=== PATIENT | male | born 2000 | race Caucasian/White ===

== ENCOUNTER 2018-09-23 09:46 | Observation (INO) ==
[2018-09-23] MEDS ORDERED: SODIUM CHLORIDE 0.9% 1000ML 1,000 ML IV SCH (10:15)
[2018-09-23 10:30] LABS: Basophils # (auto) 0.01 K/uL (0-0.2); Basophils % (auto) 0.1 %; Eosinophils # (auto) 0.03 K/uL (0-0.5); Eosinophils % (auto) 0.3 %; Hematocrit (blood only) 42.4 % (42-52); Hemoglobin 15.4 g/dL (14.0-18.0); Immature Granulocytes # (auto) 0.02 K/uL (0.00-0.02); Immature Granulocytes % (auto) 0.2 %; Lymphocytes # (auto) 1.67 K/uL (1.2-3.4); Lymphocytes % (auto) 15.4 %; Mean Corpuscular Hgb Conc 36.3 g/dL (32-36); Mean Corpuscular Volume 87.2 fL (80-100); Mean Platelet Volume 9.8 fL (7.4-10.4); Monocytes % (auto) 3.7 %; Neutrophils % (auto) 80.3 %; Platelet Count 160 K/uL (130-400); RDW Standard Deviation 38.2 fL (36.4-46.3); Red Blood Count 4.86 M/uL (4.7-6.1); White Blood Count 10.83 K/uL (4.8-10.8)
--- NOTE | 2018-09-23 10:41 | Emergency Department Note ---
History of Present Illness General Chief complaint: Abdominal Pain Stated complaint: RLQ Abd pain Time Seen by Provider: 09/23/18 09:55 History of Present Illness Maximum Pain Intensity: 3 Patient is an otherwise healthy 18-year-old male who was referred to the emergency department from [facility] for evaluation of right lower quadrant abdominal pain that started yesterday. Patient reports that he woke yesterday and was feeling well and was in his usual state of health. He exercised, and then golfed with friends. He states that yesterday evening around 1930 he had dinner at [employer]. A couple of hours later, he developed a diffuse lower abdominal cramping. He thought that it was related to the food. As the evening progressed, the pain steadily worsened, and localized more to the right lower quadrant. He states that he had difficulty finding a comfortable position last evening. He intermittent nausea and lightheadedness, but denies any vomiting or diarrhea. He had a normal bowel movement overnight some time, no diarrhea, melena or hematochezia. He has not had any urinary symptoms. He did not try taking any medications for his symptoms. He went to [facility] at 0830 he was referred to the emergency department for evaluation of right lower quadrant pain and possible appendicitis. He rates his discomfort a 3/10. Home Medications Home Medications Medication Instructions Recorded Confirmed Type dextroamphetamine-amphetamine 20 mg PO DAILY 09/23/18 09/23/18 History [Adderall XR] dextroamphetamine-amphetamine 10 mg PO UD 09/23/18 09/23/18 History [Adderall] methylphenidate HCl [Concerta] 36 mg PO DAILY 09/23/18 09/23/18 History Allergies Allergy/AdvReac Type Severity Reaction Status Date / Time No Known Allergies Allergy Verified 09/23/18 10:47 Past Med/Surg History Medical History ADHD (Chronic) Surgical History History of excision of pilonidal cyst (Resolved) Social History Preferred Language: Japanese Current Living Situation Comment: roommates in a house current occupational status: student Feels Safe at Home: Yes Smoking Status: Never smoker Hx Alcohol Use: Yes Hx Substance Use: No Review of Systems A total of 10 systems reviewed and were otherwise negative Physical Exam Vital Signs Vital Signs - 24 hr 09/23/18 09:50 09/23/18 11:32 09/23/18 13:00 Temperature 36.6 C Temperature Source Oral Sepsis Recent Fever Within 48 Hours No Sepsis New/Unexplained Change in Mental Status No Sepsis Action Taken by Nursing No Action Required Pulse Rate 67 Pulse Rate [Apical] 54 L Pulse Rhythm [Apical] Pulse Strength [Apical] Respiratory Rate 15 16 16 Respiratory Effort / Characteristics Non-Labored Non-Labored Respiratory Depth Normal Normal Blood Pressure 97/66 L Blood Pressure [Left Arm] 110/52 L Blood Pressure Mean 76 Blood Pressure Mean [Left Arm] 71 Blood Pressure Position Sitting Blood Pressure Position [Left Arm] Pulse Oximetry 100 99 Oxygen Delivery Method Room Air Room Air Room Air 09/23/18 15:04 Temperature Temperature Source Sepsis Recent Fever Within 48 Hours Sepsis New/Unexplained Change in Mental Status Sepsis Action Taken by Nursing Pulse Rate Pulse Rate [Apical] 53 L Pulse Rhythm [Apical] Regular Pulse Strength [Apical] Normal Respiratory Rate 16 Respiratory Effort / Characteristics Non-Labored Spontaneous Respiratory Depth Normal Blood Pressure Blood Pressure [Left Arm] 112/55 L Blood Pressure Mean Blood Pressure Mean [Left Arm] 74 Blood Pressure Position Blood Pressure Position [Left Arm] Sitting Pulse Oximetry 100 Oxygen Delivery Method Room Air CONSTITUTIONAL: Patient is a well-appearing 18-year-old male who is awake and alert and in no acute distress. EYES: Pupils equal, round, reactive to light and accommodation. EOMs intact without nystagmus. Sclera are anicteric. ENT: Tympanic membranes intact, with normal landmarks. External canals are clear. Oral and nasopharynx are clear. Mucous membranes are moist, no lesions, tongue and gums appear normal. CARDIOVASCULAR: Regular rate and rhythm. Peripheral pulses easily palpable. RESPIRATORY: Breath sounds equal and clear to auscultation without wheezes, rales, or rhonchi heard. Full and equal chest expansion without accessory muscle use or retractions. ABDOMEN: Bowel sounds are present. Abdomen is soft, scaphoid, tender to percussion and palpation in the right lower quadrant, with voluntary guarding. No rigidity. INTEGUMENTARY: No lesions or rash, normal skin turgor. LYMPH: No lymphadenopathy. Course The patient was seen and assessed as above. Old records were reviewed. He presents the emergency department for roughly 12 hours of right lower quadrant abdominal pain with associated nausea. He has not had anything to eat or drink this morning. IV lock was initiated. He was made n.p.o. He was hydrated with normal saline solution. CBC with differential, BMP and urine dip were collected. Laboratory studies noted a white count of 10,800, No left shift or bandemia. No anemia. No significant electrolyte imbalance noted. BUN and creatinine 22 and 1.17. Urine dip was clear. Appendiceal ultrasound was obtained. The appendix was visualized and was measured at roughly 5 mm with no secondary signs of infection. CT scan was advised. CT scan with IV and oral contrast noted the appendix to be thickened and measuring 11 mm in diameter. There is no evidence for perforation or abscess. Findings were concerning for acute appendicitis. All laboratory and diagnostic imaging studies were reviewed with the patient. Attending physician was also made aware of the patient and his diagnosis. General surgery consult was placed. Patient was seen by Dr. Russo, who will take him to the OR for surgical intervention. Please refer to surgical H&P for further information. Administered Medications Sodium Chloride (Nss 1000ml) 1,000 mls @ 250 mls/hr IV .Q4H ANDREW Stop: 10/23/18 10:14 Last Admin: 09/23/18 11:55 Dose: 250 mls/hr Documented by: [id number] Ioversol (Optiray 320 100ml) 94 ml IV ONCE PRN PRN Reason: Interaction Checking Stop: 09/27/18 12:44 Last Admin: 09/23/18 12:45 Dose: 94 ml Documented by: [id number] Discontinued Medications Sodium Chloride (Nss 1000ml) 1,000 mls @ 999 mls/hr IV .Q1H1M ANDREW Stop: 09/23/18 11:15 Last Infusion: 09/23/18 11:53 Dose: 0 mls/hr Documented by: [id number] Admin: 09/23/18 10:38 Dose: 999 mls/hr Documented by: [id number] Medical Decision Making Differential Diagnosis Differential diagnoses entertained included UTI, pyelonephritis, renal colic, appendicitis, mesenteric adenitis, hernia, shingles, musculoskeletal injury, among others. Medical Records Attestation: I reviewed the patient's medical records. Home Medications Current Medication List: was personally reviewed by me Laboratory Data Attestation: I reviewed the patient's lab results. Result diagrams: 09/23/18 10:15 09/23/18 10:19 Lab Results 09/23/18 09/23/18 Range/Units 10:15 10:19 WBC 10.83 H (4.8-10.8) K/uL RBC 4.86 (4.7-6.1) M/uL Hgb 15.4 (14.0-18.0) g/dL Hct 42.4 (42-52) % MCV 87.2 (80-100) fL MCH 31.7 (25-34) pg MCHC 36.3 H (32-36) g/dL RDW Std Deviation 38.2 (36.4-46.3) fL RDW Coeff of Onofre 12.0 (11.5-14.5) % Plt Count 160 (130-400) K/uL MPV 9.8 (7.4-10.4) fL Immature Gran % (Auto) 0.2 % Neut % (Auto) 80.3 % Lymph % (Auto) 15.4 % Nolan % (Auto) 3.7 % Eos % (Auto) 0.3 % Baso % (Auto) 0.1 % Immature Gran # (Auto) 0.02 (0.00-0.02) K/uL Neut # (Auto) 8.70 H (1.4-6.5) K/uL Lymph # (Auto) 1.67 (1.2-3.4) K/uL Nolan # (Auto) 0.40 (0.11-0.59) K/uL Eos # (Auto) 0.03 (0-0.5) K/uL Baso # (Auto) 0.01 (0-0.2) K/uL Sodium 140 (136-145) mmol/L Potassium 4.2 (3.5-5.1) mmol/L Chloride 107 (98-107) mmol/L Carbon Dioxide 28 (21-32) mmol/L Anion Gap 5.0 (3-11) BUN 22 H (7-18) mg/dl Creatinine 1.17 (0.6-1.4) mg/dl Est Cr Clr Drug Dosing Not Reportable Est GFR ( Amer) 103.4 Est GFR (Non-Af Amer) 89.2 BUN/Creatinine Ratio 18.7 (10-20) Glucose 95 (70-99) mg/dl Calcium 9.3 (8.5-10.1) mg/dl Imaging Data Attestation: I personally reviewed and interpreted this imaging study as follows: Radiologist's Impression: ABDOMEN AND PELVIS CT WITH IV AND ORAL CONTRAST CT DOSE: 270.36 mGy.cm HISTORY: RLQ PAIN TECHNIQUE: Multiaxial CT images of the abdomen and pelvis were performed following the use of intravenous and oral contrast. A dose lowering technique was utilized adhering to the principles of ALARA. COMPARISON STUDY: Appendix ultrasound 09/23/2018. FINDINGS: The lung bases are clear. No pneumoperitoneum. No pneumatosis. No fractures within the visualized osseous structures. The liver, gallbladder, pancreas, spleen, adrenal glands, and right kidney are unremarkable. There is a 1 cm hypodense lesion within the lower pole of the left kidney. This favors a cyst. No hydronephrosis. Normal bladder. No retroperitoneal lymphadenopathy. Trace pelvic fluid. No definite bowel wall thickening or obstruction. Moderate well-formed stool seen. Mild inflammatory change within the right lower quadrant posterior to the cecum. There is a thickened blind-ending tubular structure likely representing the appendix at this location. This measures up to 11 mm in diameter. This is best seen on images 237 through 257. Therefore, this is consistent with acute appendicitis. No perforation or abscess identified at this time. IMPRESSION: Above findings consistent with acute appendicitis. APPENDIX ULTRASOUND HISTORY: Right lower quadrant pain. COMPARISON: None. FINDINGS: Transabdominal scanning of the right lower quadrant was performed. The appendix appears to be visualized within the right lower quadrant the patient's area of pain. However, the appendix is normal in size measuring 5 mm in diameter. No periappendiceal abscess. IMPRESSION: The appendix is identified within the right lower quadrant at the patient's area of pain. However, the appendix is normal in size. Dedicated CT is recommended for further evaluation to exclude the possibility of a developing acute appendicitis. Blood Pressure Blood Pressure Findings: Normal blood pressure Blood Pressure Disposition: did not require urgent referral MDM Narrative See ED Course. Impression & Plan Acute appendicitis Discharge Plan Visit Data Chief Complaint: Abdominal Pain Stated Complaint: RLQ Abd pain ED Provider: Danyel Cueva ED Midlevel Provider: Padmini Rea Discharge Problem: Acute appendicitis Patient Disposition: Being Evaluated by Surgeon Forms Stand Alone Forms: [facility] Prescriptions Prescriptions: No Action dextroamphetamine-amphetamine [Adderall] 10 mg Tablet 10 mg PO UD RF: 0 dextroamphetamine-amphetamine [Adderall XR] 20 mg Capsule,Extended Release 24hr 20 mg PO DAILY RF: 0 methylphenidate HCl [Concerta] 36 mg Tablet Extended Release 24hr 36 mg PO DAILY RF: 0 Referrals [facility]Primary Care Provider[facility] - Discharge Problem: Acute appendicitis Qualifiers: Acute appendicitis type: with localized peritonitis Appendicitis gangrene presence: without gangrene Appendicitis perforation presence: without perforation Appendicitis abscess presence: without abscess Qualified Code(s): K35.30 - Acute appendicitis with localized peritonitis, without perforation or gangrene
[2018-09-23 10:46] LABS: BUN Creatinine Ratio 18.7 (10-20); Blood Urea Nitrogen 22 mg/dl (7-18); Calcium 9.3 mg/dl (8.5-10.1); Carbon Dioxide 28 mmol/L (21-32); Chloride 107 mmol/L (98-107); Est GFR (African American) 103.4; Est GFR (Non-African American) 89.2; Glucose 95 mg/dl (70-99); Potassium 4.2 mmol/L (3.5-5.1); Sodium 140 mmol/L (136-145)
--- NOTE | 2018-09-23 11:19 | Ultrasound Report ---
APPENDIX ULTRASOUND HISTORY: Right lower quadrant pain. COMPARISON: None. FINDINGS: Transabdominal scanning of the right lower quadrant was performed. The appendix appears to be visuali zed within the right lower quadrant the patient's area of pain. However, the appendix is normal in si ze measuring 5 mm in diameter. No periappendiceal abscess. IMPRESSION: The appendix is identified within the right lower quadrant at the patient's area of pain. However, th e appendix is normal in size. Dedicated CT is recommended for further evaluation to exclude the possi bility of a developing acute appendicitis. Electronically signed by: Boone Ferrer M.D. 09/23/2018 11:17 AM
[2018-09-23] MEDS: SODIUM CHLORIDE 0.9% 1000ML 1,000 ML IV SCH ×2 (11:55→19:08)
[2018-09-23] MEDS ORDERED: IOVERSOL 100ml IV PRN (12:45)
--- NOTE | 2018-09-23 13:01 | CT Scan Report ---
ABDOMEN AND PELVIS CT WITH IV AND ORAL CONTRAST CT DOSE: 270.36 mGy.cm HISTORY: RLQ PAIN TECHNIQUE: Multiaxial CT images of the abdomen and pelvis were performed following the use of intrave nous and oral contrast. A dose lowering technique was utilized adhering to the principles of ALARA. COMPARISON STUDY: Appendix ultrasound 09/23/2018. FINDINGS: The lung bases are clear. No pneumoperitoneum. No pneumatosis. No fractures within the visu alized osseous structures. The liver, gallbladder, pancreas, spleen, adrenal glands, and right kidney are unremarkable. There is a 1 cm hypodense lesion within the lower pole of the left kidney. This fa vors a cyst. No hydronephrosis. Normal bladder. No retroperitoneal lymphadenopathy. Trace pelvic flui d. No definite bowel wall thickening or obstruction. Moderate well-formed stool seen. Mild inflammato ry change within the right lower quadrant posterior to the cecum. There is a thickened blind-ending t ubular structure likely representing the appendix at this location. This measures up to 11 mm in diam eter. This is best seen on images 237 through 257. Therefore, this is consistent with acute appendici tis. No perforation or abscess identified at this time. IMPRESSION: Above findings consistent with acute appendicitis. Electronically signed by: Boone Ferrer M.D. 09/23/2018 12:59 PM
--- NOTE | 2018-09-23 15:29 | History & Physical Report ---
Date of Service September 23, 2018 Assessment & Plan (1) Acute appendicitis: This patient's history, physical findings, laboratories and CT findings are consistent with appendicitis. I reviewed the images as well as the report I have recommended a laparoscopic appendectomy. I explained the possible need to convert to an open procedure. I explained the possible complications associated with those procedures. The patient wishes to go ahead with surgery and has signed a consent form. Present on Admission?: Yes History of Present Illness Chief Complaint: Right lower quadrant pain Primary Care Provider: [facility] This is a 18-year-old male who presented to the emergency room planing of pain in the right lower quadrant. He stated that yesterday he worked out and then ate supper around 9 PM. Following that he developed some abdominal discomfort that was vague ache-like discomfort in the lower abdomen bilaterally with no side predominating. He did not sleep well last night and as the night in the morning progressed the discomfort migrated to the right lower quadrant where it is located at the present time. There is no radiation of the pain into his back or into the upper abdomen. Motion can exacerbate it. He is never had pain like this before. He had no fever or chills. He had a short episode of nausea but did not vomit. Is been moving his bowels without diarrhea or constipation he denies melena and hematochezia. He has not had any dysuria or hematuria. Allergies Allergy/AdvReac Type Severity Reaction Status Date / Time No Known Allergies Allergy Verified 09/23/18 10:47 Home Medications Home Medications Medication Instructions Recorded Confirmed Type dextroamphetamine-amphetamine 20 mg PO DAILY 09/23/18 09/23/18 History [Adderall XR] dextroamphetamine-amphetamine 10 mg PO UD 09/23/18 09/23/18 History [Adderall] methylphenidate HCl [Concerta] 36 mg PO DAILY 09/23/18 09/23/18 History Past Med/Surg History Medical History ADHD (Chronic) Surgical History History of excision of pilonidal cyst (Resolved) Social History Preferred Language: Nigerien Current Living Situation Comment: roommates in a house current occupational status: student Feels Safe at Home: Yes Smoking Status: Never smoker Hx Alcohol Use: Yes Hx Substance Use: No Review of Systems Review of Systems: All systems reviewed & are unremarkable except as noted in HPI & below Physical Exam Constitutional: well developed; no acute distress Neck: trachea midline Respiratory: normal respiratory effort, lungs clear to auscultation Cardiovascular: Rate/Rhythm: regular rate and regular rhythm Gastrointestinal (Abdomen): Inspection/Auscultation: normal bowel sounds; abdomen not distended Percussion/Palpation: + abdomen tender (Right lower quadrant mild to moderate to moderate palpation) and abdomen soft; no abdominal mass Skin: no rashes, warm and dry Lymphatic: no cervical lymphadenopathy Results & Data Vital Signs (Past 12 Hours) Vital Signs Temp Pulse Pulse Resp BP BP Pulse Ox 09/23/18 15:04 53 L 16 112/55 L 100 09/23/18 13:00 16 09/23/18 11:32 54 L 16 110/52 L 99 09/23/18 09:50 36.6 C 67 15 97/66 L 100 Laboratory Results 09/23/18 09/23/18 09/23/18 Range/Units 10:32 10:19 10:15 WBC 10.83 H (4.8-10.8) K/uL RBC 4.86 (4.7-6.1) M/uL Hgb 15.4 (14.0-18.0) g/dL Hct 42.4 (42-52) % MCV 87.2 (80-100) fL MCH 31.7 (25-34) pg MCHC 36.3 H (32-36) g/dL RDW Std Deviation 38.2 (36.4-46.3) fL RDW Coeff of Onofre 12.0 (11.5-14.5) % Plt Count 160 (130-400) K/uL MPV 9.8 (7.4-10.4) fL Immature Gran % (Auto) 0.2 % Neut % (Auto) 80.3 % Lymph % (Auto) 15.4 % [place] % (Auto) 3.7 % Eos % (Auto) 0.3 % Baso % (Auto) 0.1 % Immature Gran # (Auto) 0.02 (0.00-0.02) K/uL Neut # (Auto) 8.70 H (1.4-6.5) K/uL Lymph # (Auto) 1.67 (1.2-3.4) K/uL [place] # (Auto) 0.40 (0.11-0.59) K/uL Eos # (Auto) 0.03 (0-0.5) K/uL Baso # (Auto) 0.01 (0-0.2) K/uL Sodium 140 (136-145) mmol/L Potassium 4.2 (3.5-5.1) mmol/L Chloride 107 (98-107) mmol/L Carbon Dioxide 28 (21-32) mmol/L Anion Gap 5.0 (3-11) BUN 22 H (7-18) mg/dl Creatinine 1.17 (0.6-1.4) mg/dl Est Cr Clr Drug Dosing Not Reportable Est GFR ( Amer) 103.4 Est GFR (Non-Af Amer) 89.2 BUN/Creatinine Ratio 18.7 (10-20) Glucose 95 (70-99) mg/dl Calcium 9.3 (8.5-10.1) mg/dl POC Urine pH Pending POC Urine Protein Pending POC Ur Glucose (UA) Pending POC Urine Ketones Pending POC Urine Blood Pending POC Urine Nitrite Pending POC Urine Bilirubin Pending POC Urine Urobilinogen Pending POC U Leukocyte Esteras Pending Diagnostic Findings [facility], [place] [phone] CT Scan Report Patient: FANNY VIEYRA Date: 09/23/18 MR#: [id number] [address] [employer] Acct ID:[id number]: Date: 2000[facility] Zip: [place] [address] Age: 18Location: ED Sex: M Room/Bed: Att Phy: Diagnosis: R FLANK PAIN [facility]: [facility] Fam Phy: Interpreting Phy: Boone Ferrer MD Admit Phy: Ordering Phy: Catrachita Rea PA cc: ~ ABDOMEN AND PELVIS CT WITH IV AND ORAL CONTRAST CT DOSE: 270.36 mGy.cm HISTORY: RLQ PAIN TECHNIQUE: Multiaxial CT images of the abdomen and pelvis were performed following the use of intravenous and oral contrast. A dose lowering technique was utilized adhering to the principles of ALARA. COMPARISON STUDY: Appendix ultrasound 09/23/2018. FINDINGS: The lung bases are clear. No pneumoperitoneum. No pneumatosis. No fractures within the visualized osseous structures. The liver, gallbladder, pancreas, spleen, adrenal glands, and right kidney are unremarkable. There is a 1 cm hypodense lesion within the lower pole of the left kidney. This favors a cyst. No hydronephrosis. Normal bladder. No retroperitoneal lymphadenopathy. Trace pelvic fluid. No definite bowel wall thickening or obstruction. Moderate well-formed stool seen. Mild inflammatory change within the right lower quadrant posterior to the cecum. There is a thickened blind-ending tubular structure likely representing the appendix at this location. This measures up to 11 mm in diameter. This is best seen on images 237 through 257. Therefore, this is consistent with acute appendicitis. No perforation or abscess identified at this time. IMPRESSION: Above findings consistent with acute appendicitis. (1) Acute appendicitis Acute appendicitis type: with localized peritonitis Appendicitis abscess presence: without abscess Appendicitis gangrene presence: without gangrene Appendicitis perforation presence: without perforation Qualified Code(s): K35.30 - Acute appendicitis with localized peritonitis, without perforation or gangrene
[2018-09-23] MEDS ORDERED: HEPARIN (PORCINE) 1000 UNIT/ML 10 ML (CATH LAB USE ONLY) ONE (15:33)
[2018-09-23] MEDS ORDERED: BUPIVACAINE 0.5 % 5 MG/1 ML MPF 30ML VIAL ONE (15:33)
[2018-09-23] MEDS ORDERED: CEFAZOLIN 250 MG/ML 1 GM VIAL ONE (15:34)
[2018-09-23] MEDS ORDERED: PROPOFOL IV EMULSION 10 MG/ML 20 ML VIAL IV ONE (15:36)
[2018-09-23] MEDS ORDERED: LIDOCAINE 2% 20 MG/ML 5 ML SYR IV ONE (15:37)
[2018-09-23] MEDS ORDERED: ROCURONIUM BROMIDE 10 MG/ML 5 ML VIAL ONE (15:37)
[2018-09-23] MEDS ORDERED: SUCCINYLCHOLINE CHLORIDE 20 MG/ML 10 ML VIAL ONE (15:37)
[2018-09-23] MEDS ORDERED: fentaNYL citrate 100 MCG/2 ML VIAL ONE ×3 (15:40→18:06)
[2018-09-23] MEDS ORDERED: MIDAZOLAM HCL 1 MG/ML 2ML VIAL ONE (15:41)
--- NOTE | 2018-09-23 16:08 | Anesthesiology Consultation ---
Date of Service September 23, 2018 Assessment & Plan (1) Encounter for pre-operative examination: NPO Date Last Intake of Fluids: 09/23/18 Time Last Intake of Fluids: 11:00 Last Intake of Fluids Comment: ct contrast Date Last Intake of Solids: 09/22/18 Time Last Intake of Solids: 21:00 History Surgery Operation Date: 09/23/18 15:30 Proposed Procedures p Laparoscopic Appendectomy - Janes Russo MD Height/Weight Weight: 74.1 kg Allergies Allergy/AdvReac Type Severity Reaction Status Date / Time No Known Allergies Allergy Verified 09/23/18 10:47 Medications Home Medications Medication Instructions Recorded Confirmed Last Taken dextroamphetamine-amphetamine 20 mg PO DAILY 09/23/18 09/23/18 Unknown [Adderall XR] dextroamphetamine-amphetamine 10 mg PO UD 09/23/18 09/23/18 Unknown [Adderall] methylphenidate HCl [Concerta] 36 mg PO DAILY 09/23/18 09/23/18 Unknown Active Medications Generic Name Dose Route Start Last Admin Trade Name Freq PRN Reason Stop Dose Admin Sodium Chloride 1,000 mls @ 250 mls/hr 09/23/18 10:15 09/23/18 11:55 Nss 1000ml IV 10/23/18 10:14 250 mls/hr .Q4H ANDREW Administration Ioversol 94 ml 09/23/18 12:45 09/23/18 12:45 Optiray 320 100ml IV 09/27/18 12:44 94 ml ONCE PRN Administration Interaction Checking Past Medical History Medical History ADHD (Chronic) Past Surgical History Surgical History History of excision of pilonidal cyst (Resolved) Social History Smoking Status: Never smoker Hx Alcohol Use: Yes Hx Substance Use: No Physical Exam Vital Signs Last Vital Signs Temp 36.6 C 09/23/18 09:50 Pulse 70 09/23/18 15:59 Resp 18 09/23/18 15:59 BP 118/74 09/23/18 15:59 Pulse Ox 100 09/23/18 15:59 Testing Laboratory Results 09/23/18 10:15 09/23/18 10:19
[2018-09-23] MEDS ORDERED: ATROPINE SULFATE 0.1 MG/ML 10ML SYR IV PRN (16:15)
[2018-09-23] MEDS ORDERED: LABETALOL HCL IV 5 MG/ML 20ML IV PRN (16:15)
[2018-09-23] MEDS ORDERED: ONDANSETRON INJ 2 MG/ML 2 ML VIAL IV PRN ×2 (16:15→20:23)
[2018-09-23] MEDS ORDERED: ePHEDrine sulfate 50 MG/ML AMP IV PRN (16:15)
[2018-09-23] MEDS ORDERED: MEPERIDINE HCL 25 MG/ML CARP IV PRN (16:15)
[2018-09-23] MEDS ORDERED: PHENYLEPHRINE 100MCG/ML 5ML SYR IV PRN (16:15)
[2018-09-23] MEDS ORDERED: HYDROmorphone INJ 1 MG/ML SYRINGE IV PRN (16:15)
[2018-09-23] MEDS ORDERED: DEXAMETHASONE SOD INJ 4 MG/ML VIAL ONE (16:25)
[2018-09-23] MEDS ORDERED: ONDANSETRON INJ 2 MG/ML 2 ML VIAL ONE (16:25)
[2018-09-23] MEDS ORDERED: NEOSTIGMINE METHYLSULFATE 5 MG/5 ML SYR ONE (16:44)
[2018-09-23] MEDS ORDERED: GLYCOPYRROLATE 0.2 MG/ML VIAL ONE (16:44)
[2018-09-23] MEDS ORDERED: CEFAZOLIN 2000MG 2,000 MG/15 ML SYR IV ONE (17:10)
[2018-09-23] MEDS ORDERED: KETOROLAC 30 MG/ML VIAL ONE (17:19)
--- NOTE | 2018-09-23 17:42 | Post Operative Brief Note ---
Immediate Post Op Note v1 Date of Surgery September 23, 2018 Pre & Post Diagnosis Operation Date: 09/23/18 15:30 Pre-Op Diagnosis: Acute Appendicitis Post-Op Diagnosis: Acute Appendicitis Procedure Operation Date: 09/23/18 15:30 Actual Procedures p Laparoscopic Appendectomy(Not Applicable) - Janes Russo MD Surgeon Janes Russo MD Slot Machine Key Person None Estimated Blood Loss 5 Findings Consistent with Post-Op Diagnosis Specimens Appendix Drains Padilla Catheter Anesthesia Type General Complications none
[2018-09-23] MEDS: fentaNYL citrate 100 MCG/2 ML VIAL IV PRN ×4 (18:06→18:21)
--- NOTE | 2018-09-23 18:10 | Anesthesiology Progress Note ---
Date of Service September 23, 2018 Anesthesia Post Procedure Vital Signs Vital Signs: Temp Pulse Pulse Resp BP BP Pulse Ox 09/23/18 18:00 49 L 16 110/62 100 09/23/18 17:53 36.8 C 65 16 96/62 L 100 09/23/18 15:59 70 18 118/74 100 09/23/18 15:04 53 L 16 112/55 L 100 09/23/18 13:00 16 09/23/18 11:32 54 L 16 110/52 L 99 09/23/18 09:50 36.6 C 67 15 97/66 L 100 Pain Intensity Right Abdomen: Pain Intensity: 2 Notes Mental Status: alert / awake / arousable and participated in evaluation Patient Amnestic to Procedure: Yes Nausea / Vomiting: adequately controlled Pain: adequately controlled Airway Patency, RR, SpO2: stable & adequate BP & HR: stable & adequate Hydration State: stable & adequate Anesthetic Complications: no major complications apparent and Pt Satisfied with anesthetic care
[2018-09-23] MEDS ORDERED: MoRPHine SULFATE 4 MG/ML 1 ML CARP\\VIAL IV PRN (18:57)
[2018-09-23] MEDS ORDERED: OXYCODONE/ACETAMINOPHEN 5mg/325mg TAB PO PRN (18:57)
[2018-09-23] MEDS: D5W AND 1/2NSS + 20MEQ KCL 20 MEQ/1,000 ML BAG IV SCH (19:52)
[2018-09-23] MEDS ORDERED: ACETAMINOPHEN 500 MG TAB PO PRN (20:23)
--- NOTE | 2018-09-23 20:48 | Operative Report ---
DATE OF OPERATION: 09/23/2018 PREOPERATIVE DIAGNOSIS: Acute appendicitis. POSTOPERATIVE DIAGNOSIS: Acute appendicitis. PROCEDURE: Laparoscopic appendectomy. SURGEON: Janes Russo MD. FINDINGS: The appendix in its distal half was dilated, hyperemic and firm. The proximal half, especially at the base was normal. The cecum was normal, especially at the base of the appendix. The remainder of the visible bowel appeared normal. There was no evidence of perforation or abscess. TECHNIQUE: The patient was given a general anesthetic and the area was prepped and draped in usual sterile fashion. Transverse incision was made below the umbilicus, carried down through the subcutaneous tissue to the fascia, which was grasped with 2 Ernie clamps and incised between. The peritoneum was identified, incised, and the introducers were placed bluntly. The abdomen was then insufflated to a pressure of 15 mmHg with carbon dioxide. The lower midline introducer was placed under direct vision through small skin incisions. Traction was placed medially on the cecum and the appendix was easily visualized lying lateral to the cecum. The left lower quadrant introducer was placed under direct vision through small skin incision. There were some adhesions of the cecum over the appendix and these were taken down using blunt cautery dissection where appropriate. That allowed me to expose the appendix, which was extending off the inferior aspect of the cecum and then reversing back up along the right paracolic gutter for a short distance. I was able to elevate the appendix and flimsy attachments to the lateral abdominal wall. The tip of the appendix, however, was more densely adhesed to the posterior and lateral abdominal wall, and those adhesions were taken down using blunt cautery dissection where appropriate. That allowed me to elevate the tip of the appendix and divide some other flimsy peritoneal attachments along the mesoappendix, which allowed full mobilization. I was then able to easily establish a plane between the mesoappendix and the base of the appendix and I divided the mesoappendix using the Endo-VITO stapler. That allowed me to confirm that I was at the base of the appendix. The appendix was amputated using the Endo-VITO. The appendix was placed into a bag and brought out through the left lower quadrant introducer site. That introducer was replaced. The right lower quadrant was irrigated and the irrigation was removed. The areas of dissection were inspected and there was no bleeding. There was a very tiny amount of oozing from the staple line on the cecum, which was controlled with minimal cautery. The right lower quadrant was again irrigated and irrigation removed, and the area was again inspected and there was no bleeding. Any irrigation that entered the right upper quadrant and the pelvis was removed. The gas was allowed to escape and the introducers were removed. The fascia of the umbilical and left lower quadrant introducer sites was closed with interrupted 0 Vicryl and skin of all the incisions was closed with 4-0 Monocryl in either an interrupted or running subcuticular fashion. Skin was anesthetized with 0.5% Marcaine. The skin was cleansed, dried, benzoin placed, Steri-Strips applied. Estimated blood loss was 5 mL. Sponge, needle and instrument counts were correct prior to closure. The patient tolerated the surgical procedure without complication and was transferred to recovery. I attest to the content of the Intraoperative Record and any orders documented therein. Any exception s are noted below.
[2018-09-24] MEDS: D5W AND 1/2NSS + 20MEQ KCL 20 MEQ/1,000 ML BAG IV SCH (05:22)
--- NOTE | 2018-09-24 11:09 | Surgery Progress Note ---
Date of Service September 24, 2018 Assessment & Plan (1) Acute appendicitis: POD # 1 s/p laparoscopic appendectomy -vitals stable, afebrile - pain controlled, minimal post op - no n/v, tolerated regular diet Plan: Discharge home today discharge instructions reviewed Rx for Percocet prn pain f/u surgical office in 2 weeks Subjective feeling well preoperative pain resolved post op pain minimal at incisions, has taken Tylenol for pain some burning on urination but improving each time walking hallways with ease tolerated regular diet, no n/v no chest pain/sob Physical Exam Constitutional: WD/WN, vitals as above no acute distress and not ill appearing Respiratory: normal respiratory effort, lungs clear to auscultation Cardiovascular: RRR, no murmur, no edema Gastrointestinal (Abdomen): Inspection/Auscultation: normal bowel sounds; abdomen not distended Percussion/Palpation: + abdomen tender (at incision sites) and abdomen soft; no guarding and abdomen not rigid Skin: no rashes, warm and dry + incision (covered with dressing, periumbilical dressing saturated but dry) Psychiatric: A+Ox3, euthymic affect Results & Data Vital Signs (Past 12 Hours) Vital Signs Temp Pulse Resp BP Pulse Ox 09/24/18 07:21 36.6 C 46 L 18 105/63 100 09/24/18 04:00 36.7 C 50 L 16 93/52 L 98 09/24/18 00:05 37 C 53 L 16 110/64 98 (1) Acute appendicitis Acute appendicitis type: with localized peritonitis Appendicitis abscess presence: without abscess Appendicitis gangrene presence: without gangrene Appendicitis perforation presence: without perforation Qualified Code(s): K35.30 - Acute appendicitis with localized peritonitis, without perforation or gangrene
--- NOTE | 2018-09-27 11:49 | Discharge Summary ---
Date of Service September 27, 2018 Admission HPI Per Admitting Provider This is a 18-year-old male who presented to the emergency room planing of pain in the right lower quadrant. He stated that yesterday he worked out and then ate supper around 9 PM. Following that he developed some abdominal discomfort that was vague ache-like discomfort in the lower abdomen bilaterally with no side predominating. He did not sleep well last night and as the night in the morning progressed the discomfort migrated to the right lower quadrant where it is located at the present time. There is no radiation of the pain into his back or into the upper abdomen. Motion can exacerbate it. He is never had pain like this before. He had no fever or chills. He had a short episode of nausea but did not vomit. Is been moving his bowels without diarrhea or constipation he denies melena and hematochezia. He has not had any dysuria or hematuria. Principal Diagnosis acute appendicitis Discharge Exam Constitutional WD/WN, vitals as above no acute distress and not ill appearing Respiratory normal respiratory effort, lungs clear to auscultation Cardiovascular RRR, no murmur, no edema Gastrointestinal (Abdomen) Inspection/Auscultation: normal bowel sounds; abdomen not distended Percussion/Palpation: + abdomen tender (at incision sites) and abdomen soft; no guarding and abdomen not rigid Skin no rashes, warm and dry + incision (covered with dressing, periumbilical dressing saturated but dry) Psychiatric A+Ox3, euthymic affect Discharge Data Allergies Allergy/AdvReac Type Severity Reaction Status Date / Time No Known Allergies Allergy Verified 09/23/18 10:47 Procedures Performed Operation Date: 09/23/18 15:30 Actual Procedures p Laparoscopic Appendectomy(Not Applicable) - Janes Russo MD Ordered Studies 09/23/18 10:11 CT abd pelvis oral and IV con Stat US appendix Stat Hospital Course (1) Acute appendicitis: Patient taken to operating room for laparposcopic appendectomy possible open by Dr. Russo. Patient found to have acute appendicitis without perforation or abscess. Patient tolerated procedure without difficulty and transferred to medical/surgical floor for post op care. Stated on regular diet, iv fluids, po percocet prn pain, activity as tolerated. POD # 1 vitals stable, afebrile pain controlled, minimal post op, no n/v, tolerated regular diet. Patient discharged home on POD # 1 in stable condition. Total Time Total Time Spent Total Time Spent (In Minutes): 15 Total Time Includes: Examination of the Patient, Discharge Planning and Medication Reconciliation Discharge Plan Discharge Items Patient Disposition: Home - Self-Care Reason For Visit: APPENDICITIS Discharge Diagnosis: Acute appendicitis Discharge Goals: Decrease discomfort and Improve function Activity: Per 'Additional Instructions' section Non-emergency contact: Surgeon Call non-emergency contact if: your pain is not controlled, your pain is worsening, your pain is concerning for you, you have a fever, your temperature is above 101, your wound has increased redness and your wound has increased drainage Follow-up/Referrals: [place] [Primary Care Provider] - Diet: Regular Addtl Provider Instructions: Post-Surgical ~Discharge Instructions Activity Recommendations: - lifting limitation: (10 pounds for 2 weeks), - exercise/sex/sports limit: (nonstrenuous for 2 weeks), - driving or machine use limit: (none for 1 week), - Shower/bathe limit: (may shower beginning tonight) Diet: - Resume previous diet SPECIAL CARE INSTRUCTIONS: - May shower tonight. Let water run over area and pat dry. - Leave steri strips on for one week. - Call the surgeon's office with any questions or concerns - - (ex. temperature higher than 101 degrees F, excessive bleeding or pain). MEDICATIONS: - Resume previous medications unless instructed otherwise by your surgeon. - Ibuprofen 600 mg every 6 hours with food - Percocet 1 every 4 hours, as needed for pain FOLLOW UP VISIT: - If not already scheduled, please call the office to schedule a two week follow-up appointment. Office number Prescriptions: New oxycodone-acetaminophen [Percocet] 5-325 mg Tablet 1 tab PO Q4H PRN (Reason: pain) Qty: 18 RF: 0 Continued dextroamphetamine-amphetamine [Adderall] 10 mg Tablet 10 mg PO UD RF: 0 dextroamphetamine-amphetamine [Adderall XR] 20 mg Capsule,Extended Release 24hr 20 mg PO DAILY RF: 0 methylphenidate HCl [Concerta] 36 mg Tablet Extended Release 24hr 36 mg PO DAILY RF: 0 Stand-Alone Forms: [employer], Opio[facility] Pain [facility], Work/School Release (Inpt) Discharge Orders: Discharge Order (Routine); Ordered 09/24/18 Ordered By: Shana Hickman Admission Data Admit Date/Time: 09/23/18 17:56 Attending Provider: Janes Russo Admit Provider: Janes Russo Primary Care Provider: [place] Service: Surgical Services Other Interventions: Discharge Summary Assessment (RN) Last Done: 09/24/18 12:18 Pending Studies at Discharge: Yes (appendix pathology will be reviewed at follow-up visit or call with results) DC Date/Time DO NOT enter until pt leaves facility: 09/24/18 16:35
== END 2018-09-24 16:35 | disposition home or self-care (01) ==
LOC: ED 09:46 → 3E 15:59 → OR 15:59